=== PATIENT | female | born 1955 | race Two or more races ===

== ENCOUNTER 2024-02-17 05:22 | Inpatient (IN) | payer OTHER ==
[~2024-02-17] VITALS: Ht 167.6 cm; Wt 70.8 kg
[2024-02-17] MEDS ORDERED: SYNTHROID75 MCG (05:27)
[2024-02-17] MEDS ORDERED: NEURONTIN600 M1 (05:27)
[2024-02-17] MEDS ORDERED: COZAAR100 MG (05:27)
[2024-02-17] MEDS ORDERED: 0.9 % SODIUM CHLORIDE 1,000 ML IV STA (06:46)
[2024-02-17] MEDS ORDERED: MEPERIDINE HCL/PF 50 MG/ML VIAL IM STA (06:47)
[2024-02-17] MEDS ORDERED: PROMETHAZINE HCL 50 MG/ML AMPUL IM STA (06:47)
[2024-02-17] MEDS ORDERED: PROMETHAZINE HCL 50 MG/ML AMPUL IM ONE (07:30)
[2024-02-17 08:18] LABS: HEMATOCRIT 35.1 % (36.0-45.00); HEMOGLOBIN 12.2 g/dL (12.0-15.00); MEAN CORPUSCULAR HEMOGLOBIN 32.4 pg (27.00-32.0); MEAN CORPUSCULAR HGB CONC 34.9 g/dl (32.0-36.0); PLATELET COUNT 221 K/uL (150-450); RED BLOOD COUNT 3.78 M/uL (4.00-6.00); RED CELL DISTRIBUTION WIDTH 12.6 % (11.5-14.5)
[2024-02-17 08:32] LABS: ALBUMIN 3.8 gm/dL (3.4-5.0); BILIRUBIN TOTAL 0.67 mg/dL (0.3-1.2); CALCIUM 9.3 mg/dL (8.5-10.1); CREATININE SERUM 0.9 mg/dL (0.55-1.02); GFR 62.64; GLOBULINA 3.5 G/DL (2.4-3.5); POTASSIUM 3.95 mEq/L (3.5-5.1); TOTAL PROTEIN 7.3 gm/dL (6.4-8.2)
[2024-02-17 08:41] LABS: INR 1.09; PARTIAL THROMBOPLASTIN TIME 27.7 SECONDS (22.0-34.0); PROTHROMBIN TIME 11.8 SECONDS (9.0-11.5)
[2024-02-17] MEDS ORDERED: MEPERIDINE HCL/PF 50 MG/ML VIAL IM PRN (10:45)
[2024-02-17] MEDS ORDERED: PROMETHAZINE HCL 50 MG/ML AMPUL IM PRN (10:45)
[2024-02-17] MEDS ORDERED: CEFTRIAXONE SODIUM 1,000 MG VIAL IV ONE (10:45)
[2024-02-17] MEDS ORDERED: 0.9 % SODIUM CHLORIDE 1,000 ML IV SCH (10:45)
[2024-02-17] MEDS ORDERED: LOSARTAN POTASSIUM 100 MG TABLET PO SCH (11:03)
[2024-02-17] MEDS ORDERED: CEFTRIAXONE SODIUM 1,000 MG VIAL ONE (11:18)
[2024-02-17 12:00] LABS: URINE APPEARANCE Clear; URINE BILIRRUBIN Negative (NEGATIVE); URINE BLOOD NHT; URINE COLOR Yellow; URINE GLUCOSE Negative (NEGATIVE); URINE KETONE Negative (NEGATIVE); URINE LEUKOCYTE Negative; URINE NITRATE Negative; URINE PROTEIN Negative (NEGATIVE); URINE UROBILINOGEN 0.2 E.U./dl
[2024-02-17 12:04] LABS: URINE EPITHELIAL CELLS 7.7 uL (0.0-38.8); URINE RBC 19.2 uL (0.0-20.8); URINE WBC 5.2 uL (0.0-23.2)
[2024-02-17 12:39] LABS: URINE CAST 0.29 uL (0.0-1.40)
[2024-02-17] MEDS ORDERED: VANCOMYCIN HCL 1,000 MG VIAL ONE (15:11)
[2024-02-17] MEDS ORDERED: CEFAZOLIN SODIUM 1,000 MG VIAL ONE (15:12)
[2024-02-17] MEDS ORDERED: ISOPROPYL ALCOHOL 30 ML OUNCE TOP ONE (15:12)
[2024-02-17] MEDS ORDERED: TRANEXAMIC ACID 100MG/1ML (1000MG) AMPUL IV ONE ×2 (15:16→18:15)
[2024-02-17] MEDS ORDERED: BUPIVACAINE HCL/MPF 0.5% 30ML VIAL ONE (15:16)
[2024-02-17] MEDS ORDERED: POVIDONE-IODINE 118 ML BOTT TOP ONE (17:38)
[2024-02-17] MEDS ORDERED: SODIUM CHLORIDE 0.45 % 1,000 ML IV SCH (19:45)
[2024-02-17] MEDS ORDERED: OxyCODONE HCL 5 MG TABLET (ROXICODONE) PO PRN (19:45)
[2024-02-17] MEDS ORDERED: MORPHINE SULFATE 4 MG/ML CARTRIDGE IV PRN (19:45)
[2024-02-17] MEDS ORDERED: ONDANSETRON HCL 2 MG/ML VIAL IV PRN (19:45)
[2024-02-17 22:20] VITALS: BP 141/79; O2SAT 96
[2024-02-18] VITALS: BP 124/80; O2SAT 95
[2024-02-18] MEDS ORDERED: ACETAMINOPHEN 500 MG GEL..CAP PO SCH
[2024-02-18] MEDS ORDERED: GABAPENTIN 300 MG CAPSULE PO SCH (01:00)
[2024-02-18] MEDS ORDERED: CEFAZOLIN SODIUM 1,000 MG VIAL IV SCH (01:00)
[2024-02-18] MEDS ORDERED: LEVOTHYROXINE SODIUM 75 MCG TABLET PO SCH (06:00)
[2024-02-18 06:51] LABS: HEMATOCRIT 31.5 % (36.0-45.00); HEMOGLOBIN 11.1 g/dL (12.0-15.00); MEAN CELL VOLUME 94.7 fL (80.00-100.00); MEAN CORPUSCULAR HEMOGLOBIN 33.4 pg (27.00-32.0); MEAN CORPUSCULAR HGB CONC 35.3 g/dl (32.0-36.0); PLATELET COUNT 201 K/uL (150-450); RED BLOOD COUNT 3.33 M/uL (4.00-6.00)
[2024-02-18 08:30] VITALS: BP 133/79; O2SAT 96
[2024-02-18] MEDS ORDERED: SENNOSIDES 1 TAB TABLET PO SCH (09:00)
[2024-02-18] MEDS ORDERED: APIXABAN 2.5 MG TABLET PO SCH (09:00)
[2024-02-18 16:46] VITALS: BP 122/75; O2SAT 98
[2024-02-19] VITALS: BP 138/68; BP 96/62; O2SAT 96
[2024-02-19 06:49] LABS: HEMATOCRIT 30.9 % (36.0-45.00); HEMOGLOBIN 10.8 g/dL (12.0-15.00); MEAN CELL VOLUME 93.8 fL (80.00-100.00); MEAN CORPUSCULAR HEMOGLOBIN 32.9 pg (27.00-32.0); MEAN CORPUSCULAR HGB CONC 35.1 g/dl (32.0-36.0); PLATELET COUNT 205 K/uL (150-450); RED BLOOD COUNT 3.29 M/uL (4.00-6.00); RED CELL DISTRIBUTION WIDTH 11.9 % (11.5-14.5)
[2024-02-19] MEDS ORDERED: IRON FUM,PS/FOLIC ACID/VITC/B3 1 CAP CAPSULE PO SCH (09:00)
[2024-02-19] MEDS ORDERED: PERCOCET 5-3251 EACH PO (10:57)
[2024-02-19] MEDS ORDERED: DUI500 PO (10:57)
[2024-02-19] MEDS ORDERED: ELIQUIS2.5 MG PO (10:57)
== END 2024-02-19 12:10 | disposition home or self-care (01) | DRG 522 ==
LOC: ER 05:24 → O/R 11:17 → SEC-K 11:17 → O/R 13:52 → SURH 20:52
PROVIDERS: General Practice; Orthopaedic Surgery; ADMIT Internal Medicine; ATTEND Internal Medicine
PROC: 0MBM0ZZ Excision of Left Hip Bursa and Ligament, Open Approach (ICD-10-PCS; 2024-02-17)
PROC: 0QU70KZ Supplement Left Upper Femur with Nonautologous Tissue Substitute, Open Approach (ICD-10-PCS; 2024-02-17)
PROC: 0PSJ06Z Reposition Left Radius with Intramedullary Internal Fixation Device, Open Approach (ICD-10-PCS; 2024-02-17)
PROC: 0PHJ35Z Insertion of External Fixation Device into Left Radius, Percutaneous Approach (ICD-10-PCS; 2024-02-17)
PROC: 0PUJ0KZ Supplement Left Radius with Nonautologous Tissue Substitute, Open Approach (ICD-10-PCS; 2024-02-17)
PROC: BW1JYZZ Fluoroscopy of Upper Extremity using Other Contrast (ICD-10-PCS; 2024-02-17)
PROC: 0SRS0J9 Replacement of Left Hip Joint, Femoral Surface with Synthetic Substitute, Cemented, Open Approach (ICD-10-PCS; principal; 2024-02-17 23:45)
DX: S72.092A Other fracture of head and neck of left femur, initial encounter for closed fracture (principal); S52.592A Other fractures of lower end of left radius, initial encounter for closed fracture; M80.052A Age-related osteoporosis with current pathological fracture, left femur, initial encounter for fracture; M80.032A Age-related osteoporosis with current pathological fracture, left forearm, initial encounter for fracture; M16.12 Unilateral primary osteoarthritis, left hip; M70.62 Trochanteric bursitis, left hip; I10 Essential (primary) hypertension; E03.9 Hypothyroidism, unspecified; W18.30XA Fall on same level, unspecified, initial encounter; Y93.9 Activity, unspecified; Y92.9 Unspecified place or not applicable; Y99.9 Unspecified external cause status